=== PATIENT | male | born 2000 | race Hispanic/Latino ===

== ENCOUNTER → 2022-10-21 | Outpatient (CLI) | payer OTHER ==
[~2022-10-21] MED LIST: ISOVUE-300 61% 100ML VIAL ONE; LIDOCAINE 1% MDV 20ML VIAL ONE; PROHANCE 279.3MG/ML 5ML VIAL ONE
== END ==
LOC: M PLAIMG 12:49
PROVIDERS: ATTEND Physician Assistant
DX: M25.511 Pain in right shoulder (principal)

== ENCOUNTER 2022-10-28 08:07 | Emergency (ER) | payer OTHER ==
[~2022-10-28] VITALS: Ht 182.9 cm; Wt 90.9 kg
[2022-10-28] MEDS ORDERED: KETOROLAC 30 MG/ML 1ML VIAL IV ONE (12:00)
[2022-10-28] MEDS ORDERED: BENZONATATE 100MG CAPSULE PO ONE (12:00)
[2022-10-28 12:33] LABS: BASO # 0.1 10^3/uL (0.0-0.2); BASO % 0.8 % (0.0-1.0); EOS # 0.1 10^3/uL (0.0-0.5); EOS % 1.1 % (0.0-3.0); HEMATOCRIT 45.5 % (42.0-52.0); HEMOGLOBIN 15.2 g/dl (13.5-17.5); LYMPH # 2.7 10^3/uL (1.5-5.0); LYMPH % 43.8 % (24.0-44.0); MEAN CORPUSCULAR HGB CONC 33.4 g/dl (32.0-36.5); MEAN CORPUSCULAR VOLUME 86.7 fl (80.0-96.0); MONO # 0.5 10^3/uL (0.0-0.8); MONO % 7.5 % (2.0-8.0); NEUTROPHILS # 2.9 10^3/uL (1.5-8.5); NEUTROPHILS % 46.3 % (36.0-66.0); PLATELET COUNT, AUTOMATED 234 10^3/uL (150-450); RED BLOOD COUNT 5.25 10^6/uL (4.30-6.10); WHITE BLOOD COUNT 6.3 10^3/uL (4.0-10.0)
[2022-10-28 13:12] LABS: MB/CK RELATIVE INDEX 0.78 (< OR =4)
[2022-10-28] MEDS: IPRATROPIUM 0.5MG/ALBUTEROL 2.5MG INH SOL UD 3ML (DUONEB) NEB PRN ×2 (13:44→13:48)
[2022-10-28] MEDS ORDERED: PROA1AER2 INH (14:02)
[2022-10-28] MEDS ORDERED: BENZ200C70 PO (14:02)
[2022-10-28 15:00] VITALS: BP 118/61
== END 2022-10-28 15:27 | disposition home or self-care (01) ==
LOC: M ED 08:07
DX: R09.1 Pleurisy (principal); R06.02 Shortness of breath; R05.9 Cough, unspecified
CPT/HCPCS: 71046; 80047; 82550; 82553; 84484; 85025; 85379; 87486; 87581; 87633; 87798; 93005; 94640; 96374; 99284; J1885